=== PATIENT | female | born 1950 | race Caucasian/White ===

== ENCOUNTER 2018-04-22 11:57 | Outpatient (CLI) | payer OTHER, SELFPAY ==
--- NOTE | 2018-04-22 09:39 | DI.RAD_ITS ---
SYMPTOM/DIAGNOSIS: LT KNEE PAIN, M25.562 LEFT KNEE: Three views. No priors. The joint spaces are well maintained. The bones are intact and normally mineralized. The soft tissues are unremarkable. IMPRESSION: Negative left knee.
== END 2018-04-22 12:17 ==
PROVIDERS: PCP Family Medicine; Visit Provider Family Medicine
DX: M25.562 Pain in left knee (principal)
CPT/HCPCS: 73562

== ENCOUNTER 2018-04-28 01:04 | Outpatient (CLI) | payer OTHER, SELFPAY ==
--- NOTE | 2018-04-28 14:40 | DI.MRI_ITS ---
SYMPTOMS/DIAGNOSIS: ACUTE LEFT KNEE PAIN, ? MENISCUS TEAR MRI OF THE LEFT KNEE: Routine noncontrast examination was performed. There is increased complex signal in the posterior horn of the medial meniscus, suspicious for a tear. The lateral meniscus is intact. The anterior cruciate and posterior cruciate ligaments are intact, as are the medial and lateral collateral ligaments, extensor mechanism and medial and lateral retinacula. The popliteus tendon is intact. The articular cartilage is unremarkable. No findings to suggest an occult fracture or avascular necrosis are present. There is a small joint effusion. There is a 6.7 cm popliteal cyst present. No soft tissues masses appreciated. The muscles show normal signal and size. IMPRESSION: 1. Findings suspicious for a tear of the posterior horn of the medial meniscus. 2. A 6.7 cm popliteal cyst.
== END 2018-04-28 01:24 ==
PROVIDERS: PCP Family Medicine; Visit Provider Orthopaedic Surgery
DX: M25.562 Pain in left knee (principal); M71.22 Synovial cyst of popliteal space [Baker], left knee; M25.462 Effusion, left knee
CPT/HCPCS: 73721

== ENCOUNTER 2018-05-20 06:19 | Day surgery (SDC) | payer OTHER, SELFPAY ==
[2018-05-20] VITALS (7 sets, daily range): BP systolic 77–168; BP diastolic 42–89; PULSE 61–72; RESP 15–18; TEMP 35.8–36.4; O2SAT 63–98
[2018-05-20] MEDS: Lactated Ringers 1,000 ML 80 ML IV (07:02)
[2018-05-20] MEDS: Bupivacaine 0.25% Pres-Free 30 ML VIAL (08:10)
--- NOTE | 2018-05-20 08:50 | W.PM.DSUDISC ---
Discharge Plan Disposition Patient Disposition: HOME Condition: Improving Discharge Details Attending Provider: Simon Perdomo Primary Care Provider: Domenica Souza Home Meds and New Rx's Prescriptions: No Action nabumetone 750 mg tablet 750 mg PO BID Qty: 60 RF: 2 lisinopril 10 MG tablet 5 mg PO DAILY Qty: 90 RF: 3 clobetasol [Temovate] 0.05 % cream 1 applic Topical BID PRNRF: 0 Discharge Instructions Stand Alone Forms: Anes.Nerve Block Instructions, DSU Post op Instructions, Cody Rosa (DSU) Discharge Orders Discharge Orders: Discharge Order (Routine); Ordered 05/20/18 Ordered By: Simon Perdomo DS: Diagnosis Discharge Diagnosis (1) Tear of medial meniscus of right knee: Status: Acute
--- NOTE | 2018-05-20 08:51 | W.PM.DSUDISC ---
Discharge Plan Disposition Patient Disposition: HOME Condition: Improving Discharge Details Attending Provider: Simon Reed Primary Care Provider: Domenica Souza Home Meds and New Rx's Prescriptions: No Action nabumetone 750 mg tablet 750 mg PO BID Qty: 60 RF: 2 lisinopril 10 MG tablet 5 mg PO DAILY Qty: 90 RF: 3 clobetasol [Temovate] 0.05 % cream 1 applic Topical BID PRNRF: 0 Discharge Instructions Additional Instructions: KEEP YOUR LEFT LEG ELEVATED ABOVE HEART LEVEL MUCH POSSIBLE FOR THE NEXT 48 HOURS. YOU MAY WALK ON YOUR LEFT LEG AND PLACE YOUR FULL WEIGHT UPON IT COMFORT ALLOWS. FOR THE NEXT 48 HOURS YOU SHOULD ONLY BE UP ON IT TO EAT OR TO GO TO THE BATHROOM. YOU ONLY NEED TO USE YOUR CRUTCHES AND THE KNEE IMMOBILIZER FOR DISCOMFORT. USE THE CRYO CUFF TO HELP PREVENT PAIN AND SWELLING. YOU MAY LOOSEN YOUR KNEE SPLINT (AND REMOVE IT WHEN COMFORTABLE). YOU MAY LOOSEN THE UNDERLYING COLLINS BANDAGES IF THEY FEEL TOO TIGHT AND RE-WRAPTHEM. ON Friday05/22/18, YOU MAY REMOVE ALL OF YOUR BANDAGES AND GET YOUR WOUNDS WET IN THE SHOWER WITH SOAP AND WATER. GENTLY PAT THE STITCHES DRY AND COVER THEM WITH BANDAIDS. APPLY A SINGLE 6 INCH COLLINS BANDAGE FOR SUPPORT AND GRADUALLY RESUME ACTIVITY TOLERATED. MAKE SURE YOU REMOVE THE 6 INCH COLLINS BANDAGE EACH NIGHT FOR SLEEPING SO THAT IT DOESN'T CAUSE SWELLING IN THE LOWER LEG. CONTINUE TO USE THE CRYOCUFF FOR PAIN AND SWELLING. TAKE YOUR USUAL MEDICATIONS BEFORE. TAKE TYLENOL FOR MILDER PAIN. IT CAN BE SAFELY USED AT THE SAME TIME NABUMETONE THEY ARE METABOLIZED DIFFERENTLY AND ARE NOT CROSS TOXIC. TAKE NORCO(HYDROCODONE 5/325MG) 1-2 EVERY 4 HOURS FOR MORE SERIOUS PAIN. [facility] [place] REGULATIONS LIMIT THE AMOUNT OF NORCO TO [address]TS[address] FOLLOW-UP WITH DR. REED IN 10-12 DAYS FOR REVIEW OF ARTHROSCOPIC FINDINGS AND STITCH REMOVAL Stand Alone Forms: Anes.Nerve Block Instructions, DSU Post op Instructions, Cody Rosa (DSU) Discharge Orders Discharge Orders: Discharge Order (Routine); Ordered 05/20/18 Ordered By: Simon Reed DS: Diagnosis Discharge Diagnosis (1) Tear of medial meniscus of left knee, current: Status: Acute
--- NOTE | 2018-05-20 09:04 | PDOC.DSDIS_ITS ---
Discharge Plan Disposition Patient Disposition: HOME Condition: Improving Discharge Details Attending Provider: Simon Reed Primary Care Provider: Domenica Souza Home Meds and New Rx's Prescriptions: No Action nabumetone 750 mg tablet 750 mg PO BID Qty: 60 RF: 2 lisinopril 10 MG tablet 5 mg PO DAILY Qty: 90 RF: 3 clobetasol [Temovate] 0.05 % cream 1 applic Topical BID PRNRF: 0 Discharge Instructions Additional Instructions: KEEP YOUR LEFT LEG ELEVATED ABOVE HEART LEVEL MUCH POSSIBLE FOR THE NEXT 48 HOURS. YOU MAY WALK ON YOUR LEFT LEG AND PLACE YOUR FULL WEIGHT UPON IT COMFORT ALLOWS. FOR THE NEXT 48 HOURS YOU SHOULD ONLY BE UP ON IT TO EAT OR TO GO TO THE BATHROOM. YOU ONLY NEED TO USE YOUR CRUTCHES AND THE KNEE IMMOBILIZER FOR DISCOMFORT. USE THE CRYO CUFF TO HELP PREVENT PAIN AND SWELLING. YOU MAY LOOSEN YOUR KNEE SPLINT (AND REMOVE IT WHEN COMFORTABLE). YOU MAY LOOSEN THE UNDERLYING COLLINS BANDAGES IF THEY FEEL TOO TIGHT AND RE- WRAPTHEM. ON Friday05/22/18, YOU MAY REMOVE ALL OF YOUR BANDAGES AND GET YOUR WOUNDS WET IN THE SHOWER WITH SOAP AND WATER. GENTLY PAT THE STITCHES DRY AND COVER THEM WITH BANDAIDS. APPLY A SINGLE 6 INCH COLLINS BANDAGE FOR SUPPORT AND GRADUALLY RESUME ACTIVITY TOLERATED. MAKE SURE YOU REMOVE THE 6 INCH COLLINS BANDAGE EACH NIGHT FOR SLEEPING SO THAT IT DOESN'T CAUSE SWELLING IN THE LOWER LEG. CONTINUE TO USE THE CRYOCUFF FOR PAIN AND SWELLING. TAKE YOUR USUAL MEDICATIONS BEFORE. TAKE TYLENOL FOR MILDER PAIN. IT CAN BE SAFELY USED AT THE SAME TIME NABUMETONE THEY ARE METABOLIZED DIFFERENTLY AND ARE NOT CROSS TOXIC. TAKE NORCO(HYDROCODONE 5/325MG) 1-2 EVERY 4 HOURS FOR MORE SERIOUS PAIN. [facility] [place] AMOUNT OF NORCO TO [address]TS[address] FOLLOW-UP WITH DR. REED IN 10-12 DAYS FOR REVIEW OF ARTHROSCOPIC FINDINGS AND STITCH REMOVAL Stand Alone Forms: Anes.Nerve Block Instructions, DSU Post op Instructions, Cody Rosa (DSU) Discharge Orders Discharge Orders: Discharge Order (Routine); Ordered 05/20/18 Ordered By: Simon Reed DS: Diagnosis Discharge Diagnosis (1) Tear of medial meniscus of left knee, current: Status: Acute
--- NOTE | 2018-05-20 12:08 | ROE_ITS ---
REPORT OF OPERATIVE PROCEDURE DATE OF PROCEDURE May 20, 2018 PREOPERATIVE DIAGNOSES Left knee pain with large calle cyst, question medial meniscus tear. POSTOPERATIVE DIAGNOSES Left posteromedial meniscus tear with damage articular cartilage medial femoral condyle. PROCEDURES Left knee arthroscopy with partial medial meniscectomy and limited chondroplasty medial femoral condy le. SURGEON Simon Perdomo M.D. [employer] Tech. ANESTHETIC LMA by Harpreet Schwab CRNA PREP ChloraPrep INDICATIONS This patient is a 67-year-old female who felt a sharp pain and pop in her left knee when stepping susan n on it. She had radiographs done, which were unremarkable. She had an MRI done, which showed a large popliteal cyst, and in addition some abnormal signal coming from the posterior medial aspect of her medial meniscus. The lateral meniscus, the ACL and the articular cartilage appeared to be intact on t he MRI images. Because of persistent pain and a prominent popliteal cyst, I felt that there was some form of internal derangement causing the production of extra joint fluid. I recommended arthroscopy t o try to sort these issues out. I discussed the planned procedure with the patient in detail. DESCRIPTION OF PROCEDURE I met her in the Day Surgery holding area and appropriately signed her left leg. The patient was brou ght to the Operating Suite, where she underwent successful induction of General anesthesia via LMA. P rophylactic intravenous antibiotics were not utilized. The patient has multiple allergies to antibiot ics and I felt the risk of infection was minimal. Time-out was instituted confirming the planned proc edure. The entire left lower extremity was prepped with ChloraPrep. Sterile drapes were applied. The arthroscopy was inserted through an anterolateral portal. Inflow was provided through the scope. Egre ss and pressure-monitoring portals were placed superolaterally. Instrumentation was accomplished ante romedially. Inspection of the medial compartment showed articular cartilage damage to the mesial asp ect of the medial femoral condyle. There was loose fibrillated articular cartilage over a fairly wide area of the medial femoral condyle. It did not go down to the subchondral bone. Associated with this was a posteromedial meniscus tear. The majority of this tear was a horizontal cleavage tear, but the re was a large posterior mesial fragment noted. The ACL was intact. The lateral compartment had a no rmal appearance and the lateral meniscus was carefully probed and found to be intact. The patella jenny eared normal. Using basket instruments, I first removed the degenerative portion of the posteromedial meniscus tear. I then smoothed the articular cartilage surface with the ArthroCare wand using a 90-d egree head. I switched to a 50-degree head and then completed the sculpturing of the remnant in the m edial meniscus. There was a small area of articular cartilage loss on the medial tibial plateau about the size of a dime. I documented the articular cartilage damage and the partial meniscectomy. I felt that approximately 5 to 7% of the medial meniscus had to be resected. The knee was then irrigated wi th several thousand cc of saline. The arthroscope was removed. Portals were closed with sutures of #4 -0 Ethilon in a horizontal mattress fashion. The knee was infiltrated with 20 cc of 0.5% Marcaine wit hout epinephrine. The wounds were dressed with Xeroform gauze, 4 x 4s, an ABD pad and a 4-inch confir dewayne gauze bandage, followed by two 6-inch Bakari wraps, a Cryo/cuff and a commercial knee immobilizer. The patient is taken to the outpatient Recovery Room in satisfactory condition, tolerating the proc edure well.
== END 2018-05-20 10:24 | disposition home or self-care (01) ==
PROVIDERS: PCP Family Medicine; Visit Provider Orthopaedic Surgery
PROC: (CPT 29870; principal; 2018-05-20 07:30)
DX: S83.242A Other tear of medial meniscus, current injury, left knee, initial encounter (principal); X58.XXXA Exposure to other specified factors, initial encounter; M24.10 Other articular cartilage disorders, unspecified site
CPT/HCPCS: 29881; J0131; J1100; J1885; J2405; L1830

== ENCOUNTER 2018-12-02 00:34 | Outpatient (CLI) | payer OTHER, SELFPAY ==
--- NOTE | 2018-12-02 12:00 | DI.MAMMO_ITS ---
SYMPTOM/DIAGNOSIS: SCREENING MAMMOGRAMS: Mammograms were interpreted according to the usual protocol including computer analysis with CAD system, tomosynthesis and C view imaging. The breasts are of moderate density with fairly symmetrical distribution of fibroglandular tissue. No dominant mass or clumped microcalcification is identified in either breast. The current examination is compared with previous examinations including 06/2017 and there has been no gross interval change in appearance in comparison with the previous studies. CONCLUSION: No specific evidence of malignancy at this time. Routine screening examinations are suggested at yearly intervals due to the family history of breast carcinoma. Category 1. Breast density, Category B. MQSA ASSESSMENT OF FINDINGS: Negative. Category 1. Patient will receive a letter notifying them of these results. BI-RADS category B. There are scattered areas of fibroglandular density.
== END 2018-12-02 00:54 ==
PROVIDERS: PCP Family Medicine; Visit Provider Family Medicine
DX: Z12.31 Encounter for screening mammogram for malignant neoplasm of breast (principal); Z80.3 Family history of malignant neoplasm of breast
CPT/HCPCS: 77063; 77067

== ENCOUNTER 2019-01-23 14:44 | Emergency (ER) | payer OTHER, SELFPAY ==
[2019-01-23 14:50] VITALS: BP 133/81; PULSE 69; RESP 14; TEMP 36.2; O2SAT 94
--- NOTE | 2019-01-23 15:10 | W.ED.GENAD ---
Discharge Plan Disposition Patient Disposition: HOME Condition: Stable Discharge Details Chief Complaint: RashLesion Clinical Impression: Foot erythema Primary Care Provider: Domenica Souza ED Provider: Shanna Jha Home Meds and New Rx's Prescriptions: Continued lisinopril 10 mg tablet 5 mg PO DAILY RF: 0 meloxicam 15 mg tablet 15 mg PO DAILY Qty: 30 RF: 2 sertraline 100 mg tablet 200 mg PO DAILY Qty: 60 RF: 0 clobetasol [Temovate] 0.05 % cream 1 applic Topical BID PRNRF: 0 Discharge Instructions Instructions: Insect Bite or Sting (ED), General Allergic Reaction (ED) Additional Instructions: Take Benadryl as needed and directed for any further itching. Apply ice to the affected area several times daily for 20 minutes at a time. Apply topical antibiotic to the area if you develop any worsening pain, redness or swelling. Follow-up with your primary care doctor in 2 days for reevaluation. Return immediately to the emergency department if you develop any worsening or concerning symptoms of fever, worsening pain, redness or swelling. Discharge Data Discharge Date/Time-TO BE ENTERED AT DEPARTURE: 01/23/19 15:45 Discharge Physician: Shanna Jha Medical Decision Making 68-year-old female who presents for evaluation of left foot itching and redness that started 1 hour prior to arrival. States she thinks that the bug bite. She states the redness has since improved. She states she has a history of multiple antibiotic allergies and became nervous and came to the ER for evaluation. She states she feels like she does not need to be here and would like to go home at this time. She made a line around the area of redness which seems to be resolving. There are no open wounds, abscesses, induration. Neurovascularly intact. No obvious bites noted. Do not see an indication for labs or imaging. Differential diagnosis includes a local inflammation due to bug bite, allergic reaction. Do not suspect cellulitis at this time, but patient was offered a prescription for antibiotics in case this worsens but she declines at this time. She is instructed to take Benadryl as needed and directed, apply ice, and elevate her left foot. She is instructed to follow-up with her primary care doctor next week for reevaluation and to return here if worse. HPI General Mode of arrival: ambulatory. Date/Time Provider Initiated Documentation: 01/23/19 14:53. Limitations to Documentation: no limitations. Information obtained by: patient. HPI Narrative: Patient is a 68-year-old female presents for evaluation of left foot redness, itching and pain. Patient states she is currently staying at [facility] and she thinks she may have sustained a bug bite to her left foot. She states that she noticed left fifth toe redness and pain and then noticed redness spreading up her foot. She states she then developed itching. She was going to take Benadryl but then got nervous and decided to come to the ER. She states the pain and redness is mainly resolving and now she has some itching. She states she feels like she did not need to be here and would like to go home at this time. She denies any fever or other known injury. Related Data Home Medications Medication Instructions Recorded Confirmed clobetasol [Temovate] 1 applic TOPICAL BID PRN 05/18/18 01/23/19 lisinopril 10 mg tablet 5 mg PO DAILY tab-cap 09/30/18 01/23/19 meloxicam 15 mg tablet 15 mg PO DAILY #30 tab 12/02/18 01/23/19 sertraline 100 mg tablet 200 mg PO DAILY #60 tab 12/02/18 01/23/19 Previous Rx's Medication Instructions Recorded meloxicam 15 mg tablet 15 mg PO DAILY #30 tab 12/02/18 sertraline 100 mg tablet 200 mg PO DAILY #60 tab 12/02/18 Allergies Allergy/AdvReac Type Severity Reaction Status Date / Time ciprofloxacin Allergy Unknown RASH Verified 01/23/19 14:53 clindamycin Allergy Unknown RASH Verified 01/23/19 14:53 Iodinated Contrast- Oral and Allergy Unknown Urticaria Verified 01/23/19 14:53 IV Dye sulfamethoxazole Allergy Unknown Verified 01/23/19 14:53 Tetracyclines Allergy Unknown Swelling Verified 01/23/19 14:53 trimethoprim Allergy Unknown Verified 01/23/19 14:53 Penicillins Allergy Verified 01/23/19 14:53 General Stated Complaint: RashLesion LUIS ALBERTO: 4 Review of Systems Review of Systems All systems reviewed & are unremarkable except as noted in HPI and below Constitutional Reports as per HPI, Denies chills and Denies fever(s) Eyes Denies blurry vision ENT Denies dizziness, Denies sore throat and Denies throat swelling Cardiovascular Denies chest pain and Denies dyspnea Respiratory Denies cough and Denies dyspnea Gastrointestinal Denies abdominal pain, Denies diarrhea and Denies vomiting Genitourinary Denies hematuria and Denies dysuria Musculoskeletal Denies back pain and Denies numbness Integumentary/Breasts Denies lesions and Reports rash Neurologic Denies dizziness, Denies focal weakness and Denies numbness Allergic/Immunologic Denies throat swelling [facility] Medical History Depression HTN (hypertension) Surgical History Biopsy, Soft Tissue (06/04/17) Cholecystectomy Colonoscopy - IV Sedation (04/30/16) Ligation of fallopian tube SHOULDER SURGERY SKIN BX Tooth extraction Family History Sister Dementia Mother Heart disease Myocardial infarction Father Gout Alcohol abuse Essential hypertension Heart disease Hyperlipidemia Sister No problems noted. Brother Essential hypertension Grandfather Myocardial infarction Grandfather Electrocution Grandmother No problems noted. Grandmother No problems noted. Social History Smoking/Tobacco Use Status: Never Alcohol Intake: current Alcohol Intake frequency: a few times a month Drug use: Never Substance use type: does not use Pets and animals: No Duration: < 15 minutes/day Frequency: 3-4 times per week Yvonne/Sabianism: Jehovah'S Witness Special yvonne needs: Yes Seatbelt use: always Do you feel safe at home: Yes Do you feel safe in your relationship?: Yes Exam Const General: cooperative, healthy appearing and no acute distress HENMT Head: normal to inspection Mouth: oral mucosae normal Eyes General: appearance normal, both eyes and all related structures Neck Neck: normal visual inspection Resp Effort & Inspection: normal respiratory effort and able to speak in complete sentences Cardio Rate: regular rate Skin General skin exam: no rashes or lesions noted Neuro General: alert, awake and oriented x3 Motor: muscle tone normal throughout Extrem Ankle/foot/toe images: 1. Very minimal faint patchy erythema. No induration, fluctuance, abrasion, laceration, vesicles or papules. Other: Left DP/PT pulses intact. No ecchymosis, deformity, or obvious foreign body. Psych Appearance: grossly normal Affect: normal affect Course Vital Signs Temperature 97.2 F L 01/23/19 14:50 Pulse 69 01/23/19 14:50 Respiratory Rate 14 01/23/19 14:50 Blood Pressure 133/81 01/23/19 14:50 Pulse Oximetry 94 L 01/23/19 14:50 Temperature 97.2 F L 01/23/19 14:50 Pulse 69 01/23/19 14:50 Respiratory Rate 14 01/23/19 14:50 Respiratory Effort Non-Labored 01/23/19 14:52 Blood Pressure 133/81 01/23/19 14:50 Blood Pressure Position Sitting 01/23/19 14:50 Pulse Oximetry 94 L 01/23/19 14:50 Oxygen Delivery Method Room Air 01/23/19 14:50 Oxygen Flow Rate 0 01/23/19 14:50 Pain Level 0 01/23/19 14:50
== END 2019-01-23 15:45 | disposition home or self-care (01) ==
PROVIDERS: Emergency Provider Physician Assistant; PCP Family Medicine
DX: L53.9 Erythematous condition, unspecified (principal); I10 Essential (primary) hypertension
CPT/HCPCS: 99282

== ENCOUNTER 2019-07-27 01:22 | Outpatient (CLI) | payer OTHER, SELFPAY ==
--- NOTE | 2019-07-27 10:06 | DI.MRI_ITS ---
EXAM: MR LOWER JOINT LT WO CLINICAL HISTORY: PAIN, INTERNAL DERANGEMENT LT KNEE. TECHNIQUE: Multiplanar multisequence MRI was performed. COMPARISON: MR LOWER JOINT LT WO FROM 04/28/2018 THERE ARE NO RECENT PLAIN FILMS FOR COMPARISON. FINDINGS: There is a moderate size joint effusion. There is a small Burkett's cyst. The Burkett's cyst appears sm aller when compared with the previous exam. The anterior cruciate ligament appears somewhat diminuti ve. There is no evidence of a full-thickness tear. Posterior cruciate ligament, medial and lateral collateral ligaments appear intact. The medial meniscus is peripherally displaced. There is cartila ge thinning over the medial femoral condyle and medial tibial plateau extending down to bone. There is high signal in the underlying bone. There is spurring from the femoral condyles and tibial platea us. There is deformity of the posterior horn of the medial meniscus posteriorly, which is likely pos tsurgical. There is a tiny declivity, which could represent a small superimposed tear of the undersu rface. Cartilage thinning is also seen over the lateral femoral condyle and lateral tibial plateau. No lateral meniscal tear is seen. There is mild thinning of the patellar cartilage but no focal def ect. IMPRESSION: 1. Degenerative and postsurgical changes of the body and posterior horn of the medial meniscus. Ther e is a question of a tiny superimposed flap tear in the posterior horn. 2. 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 Moderate chondromalacia of the lateral f emorotibial joint.
== END 2019-07-27 01:42 ==
PROVIDERS: PCP Family Medicine; Visit Provider Student in an Organized Health Care Education/Training Program
DX: M25.562 Pain in left knee (principal); M23.92 Unspecified internal derangement of left knee; M17.12 Unilateral primary osteoarthritis, left knee; M94.262 Chondromalacia, left knee
CPT/HCPCS: 73721

== ENCOUNTER 2020-03-07 11:55 | Outpatient (CLI) | payer OTHER, SELFPAY ==
--- NOTE | 2020-03-07 13:30 | DI.RAD_ITS ---
EXAM: XR HIP RT COMPLETE AP PELVIS INDICATION: groin pain, M25.551 PAIN RT HIP. COMPARISON: CR RIGHT HIP COMPLETE from 12/19/2008 TECHNIQUE: 2D digital imaging was performed. FINDINGS: The hip joint spaces are well maintained. There is bilateral acetabular spurring, greater superiorly on the right. There is spurring versus small calcification at the right greater trochanter. SI juan nts show minimal degenerative changes. Mild enthesophytes are seen at the iliac wings. IMPRESSION: Mild degenerative changes of both hips. DATA REPOSITORY: RADIATION DOSE DELIVERED:
== END 2020-03-07 12:15 ==
PROVIDERS: PCP Family Medicine; Visit Provider Family Medicine
DX: M16.0 Bilateral primary osteoarthritis of hip (principal)
CPT/HCPCS: 73502

== ENCOUNTER 2020-03-10 14:08 | Outpatient (CLI) | payer OTHER, SELFPAY ==
--- NOTE | 2020-03-10 14:40 | DI.MRI_ITS ---
EXAM: MR LUMBAR SPINE WO CLINICAL HISTORY: Pain left buttock radiating into leg, radiculopathy lumbar, M54.16. TECHNIQUE: Multiplanar multisequence MRI was performed. COMPARISON: CR XR HIP LT COMPLETE AP PELVIS from 03/07/2020 FINDINGS: T12-L1 and L2 discs have a normal appearance. There is mild concentric disc bulging at L2-3. There are mild facet degenerative changes. Findings combine to produce mild degree of central canal steno sis but no significant neural foraminal narrowing. Similar findings are seen at L3-4. At L4-5, ther e is broad-based disc bulging. There are prominent facet degenerative changes as well as ligamentous hypertrophy which combine to produce severe central canal stenosis. There is mild neural foraminal encroachment bilaterally. The L5-S1 disc shows minimal bulging. There are mild facet degenerative c hanges. There is no significant central canal stenosis or neural foraminal narrowing. The marrow si gnal appears normal. The conus medullaris is intact. The paraspinal soft tissues are unremarkable. IMPRESSION: Severe central canal stenosis at L4-5 secondary to a combination of degenerative disc changes and fac et degenerative changes. No evidence of a focal disc herniation at any level. DATA REPOSITORY:
== END 2020-03-10 14:28 ==
PROVIDERS: PCP Family Medicine; Visit Provider Family Medicine
DX: M48.061 Spinal stenosis, lumbar region without neurogenic claudication (principal); M51.16 Intervertebral disc disorders with radiculopathy, lumbar region
CPT/HCPCS: 72148

== ENCOUNTER 2020-04-14 18:54 | Outpatient (REF) | payer OTHER, SELFPAY ==
[2020-04-14 20:04] LABS: HCT 38.5 % (36.0-46.0); HGB 12.7 g/dL (11.2-15.7); MCH 30.4 pg (27.0-33.0); MCV 92.1 fL (80-95); MPV 12.3 fL (8.0-11.0); Platelet Count 234 10^3/uL (130-400); RBC 4.18 10^6/uL (3.93-5.22); RDW-SD 43.9 fL; WBC 7.26 10^3/uL (4.4-10.8)
[2020-04-14 20:13] LABS: ALT 23 U/L (14-59); AST 17 U/L (15-37); Albumin 3.9 g/dL (3.4-5.0); Alkaline Phosphatase 62 U/L (46-116); Anion Gap 8.3 mmol/L (3-11); BUN 21 mg/dL (7-18); Bilirubin, Total 0.5 mg/dL (0.2-1.0); CO2 27.7 mmol/L (21.0-32.0); CREATININE 0.88 mg/dL (0.55-1.02); Calcium 9.1 mg/dL (8.5-10.1); Chloride 105 mmol/L (98-107); Glucose 108 mg/dL (74-106); Potassium 4.3 mmol/L (3.5-5.1); Sodium 141 mmol/L (136-145); Total Protein 6.8 g/dL (6.4-8.2)
== END 2020-04-14 19:14 ==
LOC: LBN 18:54
PROVIDERS: PCP Family Medicine; Visit Provider Nurse Practitioner Family
DX: Z01.818 Encounter for other preprocedural examination (principal)
CPT/HCPCS: 80053; 85027

== ENCOUNTER 2020-11-06 03:25 | Outpatient (CLI) | payer OTHER, SELFPAY ==
[2020-11-06 08:37] LABS: ALT 22 U/L (14-59); AST 16 U/L (15-37); Albumin 3.7 g/dL (3.4-5.0); Alkaline Phosphatase 75 U/L (46-116); Anion Gap 6.2 mmol/L (3-11); BUN 19 mg/dL (7-18); Bilirubin, Total 0.5 mg/dL (0.2-1.0); CO2 27.8 mmol/L (21.0-32.0); CREATININE 0.8 mg/dL (0.55-1.02); Calcium 8.6 mg/dL (8.5-10.1); Calculated LDL 115 mg/dL (<100); Chloride 110 mmol/L (98-107); Cholesterol 179 mg/dL (<200); Glucose 87 mg/dL (74-106); HDL Cholesterol 53 mg/dL (40-60); Potassium 4.1 mmol/L (3.5-5.1); Sodium 144 mmol/L (136-145); Total Protein 6.6 g/dL (6.4-8.2); Triglyceride 57 mg/dL (<150)
== END 2020-11-06 03:26 | disposition home or self-care (01) ==
LOC: LBO 03:25
PROVIDERS: PCP Family Medicine; Visit Provider Family Medicine
DX: I10 Essential (primary) hypertension (principal)
CPT/HCPCS: 36415; 80053; 80061

== ENCOUNTER 2020-11-14 01:26 | Outpatient (CLI) | payer OTHER, SELFPAY ==
--- NOTE | 2020-11-14 11:20 | DI.MAMMO_ITS ---
EXAM: MG MAMMO SCREENING CLINICAL HISTORY: screening,Z12.39 TECHNIQUE: Bilateral full field digital CC and MLO mammographic images were obtained with 3D tomosyn thesis and utilizing computer aided detection (CAD). COMPARISON: Available for comparison. FINDINGS: Masses/Architectural Distortion: None seen. Microcalcifications: No suspicious pleomorphic-type are seen. Skin Thickening/Nipple Retraction: None. IMPRESSION: 1. No significant interval change with no specific features of malignancy noted. 2. Unless there is more urgent need, screening mammography is recommended, as per [employer] guidelines. BI-RADS Category 1 - Negative Breast Density - Category B - Scattered areas of fibroglandular density Breast density category C or D implies that the patient has dense breast tissue. Dense breast tissue is very common and is not abnormal but dense breast tissue can make it harder to find cancer on a ma mmogram. Also, dense breast tissue may increase their breast cancer risk. This information about the result of the mammogram report was provided to the patient to raise their awareness. Use this report when you speak with the patient about their risks for breast cancer, which includes their family hist ory. At that time, you may recommend for more screening tests (Ultrasound or MRI) as they might be us eful based on their risk. A negative radiographic report should not delay biopsy if a dominant or clinically suspicious mass is present. Up to ten percent of cancers are not identified on mammography. A negative report may reinforce clinical impression. Adenosis and dense breasts may obscure an underlying neoplasm. False positive reports average 6 to 10%. Patient will receive a letter notifying them of these results.
== END 2020-11-14 01:46 ==
PROVIDERS: PCP Family Medicine; Visit Provider Family Medicine
DX: Z12.31 Encounter for screening mammogram for malignant neoplasm of breast (principal)
CPT/HCPCS: 77063; 77067

== ENCOUNTER 2021-05-15 10:25 | Outpatient (CLI) | payer OTHER, SELFPAY ==
--- NOTE | 2021-05-15 10:00 | DI.RAD_ITS ---
Exam(s) XR KNEE RT 3V AP,LAT,AUDREY EXAM: XR KNEE RT 3V AP,LAT,AUDREY CLINICAL HISTORY: right knee pain. TECHNIQUE: 2D digital imaging was performed. COMPARISON: No exams were available for comparison FINDINGS: BONES: No acute fracture is present. No bony destructive lesion is seen. Small enthesophytes patella. At these a fight tibial tubercle. JOINTS: The knee is normally aligned. A small joint effusion is seen. Mild narrowing medial femoral t ibial joint space. Mild periarticular spurring. SOFT TISSUE: Normal. IMPRESSION: Mild degenerative changes, greatest of the medial femoral tibial joint. DATA REPOSITORY: RADIATION DOSE DELIVERED:
== END 2021-05-15 10:26 | disposition home or self-care (01) ==
LOC: DIORS 10:26
PROVIDERS: PCP Family Medicine; Visit Provider Student in an Organized Health Care Education/Training Program
DX: M25.561 Pain in right knee (principal); M25.461 Effusion, right knee; M17.11 Unilateral primary osteoarthritis, right knee
CPT/HCPCS: 73562

== ENCOUNTER 2021-11-29 00:16 | Outpatient (CLI) | payer OTHER, SELFPAY ==
--- NOTE | 2021-11-29 07:45 | DI.MAMMO_ITS ---
Exam(s) MAMMO SCREENING EXAM: MAMMO SCREENING CLINICAL HISTORY: screening,z12.39 TECHNIQUE: Mammograms were interpreted according to the usual protocol including computer analysis w [employer] CAD system, tomosynthesis and C-view imaging. COMPARISON: FINDINGS: The breasts are of moderate density with fairly symmetrical distribution of fibroglandular tissue. N o dominant mass or clumped microcalcification is identified in either breast. The current examinatio n is compared with previous examinations including October 2020 and there has been no gross interval ch ameena in appearance in comparison with the prior studies. IMPRESSION: No specific evidence of malignancy at this time. Routine screening examinations are suggested at yea rly intervals in this age group according to the ACS ACR guidelines. BI-RADS Category 1 - Negative Breast Density - Category B - Scattered areas of fibroglandular density
== END 2021-11-29 00:36 ==
PROVIDERS: PCP Family Medicine; Visit Provider Family Medicine
DX: Z12.31 Encounter for screening mammogram for malignant neoplasm of breast (principal)
CPT/HCPCS: 77063; 77067

== ENCOUNTER 2022-01-14 03:29 | Outpatient (CLI) | payer OTHER, SELFPAY ==
[2022-01-14 07:16] LABS: HCT 38.8 % (36.0-46.0); HGB 12.9 g/dL (11.2-15.7); MCHC 33.2 % (32.0-36.0); MCV 90 fL (80-95); MPV 10.5 fL (8.0-11.0); Platelet Count 207 10^3/uL (130-400); RDW 12.9 % (11.7-14.6); RDW-SD 42.6 fL; WBC 6.99 10^3/uL (4.4-10.8)
[2022-01-14 08:56] LABS: ALT 18 U/L (14-59); AST 17 U/L (15-37); Albumin 3.5 g/dL (3.4-5.0); Alkaline Phosphatase 65 U/L (46-116); Anion Gap 6.1 mmol/L (3-11); BUN 22 mg/dL (7-18); Bilirubin, Total 0.5 mg/dL (0.2-1.0); CO2 29.9 mmol/L (21.0-32.0); CREATININE 0.7 mg/dL (0.55-1.02); Calcium 8.5 mg/dL (8.5-10.1); Chloride 103 mmol/L (98-107); Glucose 89 mg/dL (74-106); Potassium 3.7 mmol/L (3.5-5.1); Sodium 139 mmol/L (136-145); TSH 3.91 uIU/mL (0.36-3.74); Total Protein 6.8 g/dL (6.4-8.2); Vitamin B12 427 pg/mL (193-986)
[2022-01-15 08:55] LABS: FREE T4 0.79 ng/dL (0.76-1.46)
== END 2022-01-14 03:30 | disposition home or self-care (01) ==
LOC: LBO 03:29
PROVIDERS: PCP Family Medicine; Visit Provider Family Medicine
DX: I10 Essential (primary) hypertension (principal); R53.1 Weakness; R79.89 Other specified abnormal findings of blood chemistry; M79.604 Pain in right leg; M79.605 Pain in left leg; R26.89 Other abnormalities of gait and mobility; M48.061 Spinal stenosis, lumbar region without neurogenic claudication
CPT/HCPCS: 36415; 80053; 85027; 82607; 84439; 84443

== ENCOUNTER → 2022-01-25 00:50 | Outpatient (CLI) | payer OTHER, SELFPAY ==
--- NOTE | 2022-01-25 13:15 | DI.MRI_ITS ---
Exam(s) MR LUMBAR SPINE WO EXAM: MR LUMBAR SPINE WO CLINICAL HISTORY: recurrent bilateral leg pain/weakness,spinal stenosis,m48.061,m79.604,m79.6 TECHNIQUE: Multiplanar multisequence MRI of the Lumbar Spine was performed. CONTRAST MATERIAL: IV Contrast: mL of Dotarem contrast administered. COMPARISON: MR MR LUMBAR SPINE WO from 03/10/2020 CR XR KNEE RT 3V AP,LAT,AUDREY from 05/15/2021 FINDINGS: Bones: The last intervertebral disc space is designated the L5/S1 level for the numbering purpose of this examination. The vertebral body heights are well maintained. Alignment is satisfactory. The sig nal characteristics are unremarkable. Cord: The conus tip ends at the T12 level. It is of normal size and signal intensity. T12-L1: No disc herniations or bulges are present. L1-2: Minimal disc bulging. No disc herniations are present. L2-3: Mild loss of disc height and mild concentric disc bulging. Mild facet degenerative changes. St able small mild central canal stenosis. No neural foraminal narrowing. L3-4: Mild disc bulging. No significant neural foraminal narrowing. Slight central canal stenosis. L4-5: Status post surgery. Canal is now widely patent. Facet degenerative changes cause mild right n eural foraminal encroachment and moderate left neural foraminal encroachment. L5-S1: Minimal disc bulging. Facet degenerative changes causing mild neural foraminal encroachment. Soft tissues: The visualized SI joints and sacrum are well maintained. The paraspinal soft tissues ar e unremarkable. There is no evidence of suspicious enhancement. IMPRESSION: Status post surgery at L4-5 central canal is now widely patent. There is bilateral neural foraminal n arrowing secondary to encroachment by facet joint degenerative changes. No evidence of disc herniatio n. DATA REPOSITORY:
== END ==
PROVIDERS: PCP Family Medicine; Visit Provider Family Medicine
DX: M48.061 Spinal stenosis, lumbar region without neurogenic claudication (principal); M79.604 Pain in right leg; M79.605 Pain in left leg; M47.816 Spondylosis without myelopathy or radiculopathy, lumbar region; Z98.890 Other specified postprocedural states
CPT/HCPCS: 72148

== ENCOUNTER 2022-04-30 02:58 | Outpatient (CLI) | payer OTHER, SELFPAY ==
[2022-04-30 13:57] LABS: TSH 3.01 uIU/mL (0.36-3.74)
== END 2022-04-30 02:59 | disposition home or self-care (01) ==
LOC: LBO 02:58
PROVIDERS: PCP Family Medicine; Visit Provider Family Medicine
DX: R79.89 Other specified abnormal findings of blood chemistry (principal); I10 Essential (primary) hypertension
CPT/HCPCS: 36415; 84439; 84443

== ENCOUNTER 2022-12-05 01:27 | Outpatient (CLI) | payer OTHER, SELFPAY ==
--- NOTE | 2022-12-05 08:30 | DI.MAMMO_ITS ---
Exam(s) MAMMO SCREENING EXAM: MAMMO SCREENING CLINICAL HISTORY: screening,z12.39 TECHNIQUE: Bilateral full field digital CC and MLO mammographic images were obtained with 3D tomosyn thesis and utilizing computer aided detection (CAD). COMPARISON: Available for comparison. FINDINGS: Masses/Architectural Distortion: None seen. Microcalcifications: No suspicious pleomorphic-type are seen. Skin Thickening/Nipple Retraction: None. IMPRESSION: 1. No significant interval change with no specific features of malignancy noted. 2. Unless there is more urgent need, screening mammography is recommended, as per [employer] guidelines. BI-RADS Category 1 - Negative Breast Density - Category B - Scattered areas of fibroglandular density Breast density category C or D implies that the patient has dense breast tissue. Dense breast tissue is very common and is not abnormal but dense breast tissue can make it harder to find cancer on a ma mmogram. Also, dense breast tissue may increase their breast cancer risk. This information about the result of the mammogram report was provided to the patient to raise their awareness. Use this report when you speak with the patient about their risks for breast cancer, which includes their family hist ory. At that time, you may recommend for more screening tests (Ultrasound or MRI) as they might be us eful based on their risk. A negative radiographic report should not delay biopsy if a dominant or clinically suspicious mass is present. Up to ten percent of cancers are not identified on mammography. A negative report may reinforce clinical impression. Adenosis and dense breasts may obscure an underlying neoplasm. False positive reports average 6 to 10%. Patient will receive a letter notifying them of these results.
== END 2022-12-05 01:47 ==
LOC: DI 01:27
PROVIDERS: PCP Family Medicine; Visit Provider Family Medicine
DX: Z12.31 Encounter for screening mammogram for malignant neoplasm of breast (principal)
CPT/HCPCS: 77063; 77067

== ENCOUNTER 2022-12-19 04:41 | Outpatient (CLI) | payer OTHER, SELFPAY ==
[2022-12-19 07:48] LABS: CREATININE 0.7 mg/dL (0.55-1.02); Estimated GFR 92.98 (mL/min/1.73m2); Potassium 4.1 mmol/L (3.5-5.1)
== END 2022-12-19 04:42 | disposition home or self-care (01) ==
LOC: LBO 04:41
PROVIDERS: PCP Family Medicine; Visit Provider Family Medicine
DX: I10 Essential (primary) hypertension (principal)
CPT/HCPCS: 36415; 82565; 84132

== ENCOUNTER → 2024-01-08 00:27 | Outpatient (CLI) | payer OTHER, SELFPAY ==
--- NOTE | 2024-01-08 07:45 | DI.MAMMO_ITS ---
Exam(s) MAMMO SCREENING EXAM: MAMMO SCREENING CLINICAL HISTORY: screening, Z12.39 TECHNIQUE: Bilateral full field digital CC and MLO mammographic images were obtained with 3D tomosyn thesis and utilizing computer aided detection (CAD). COMPARISON: Available for comparison. FINDINGS: Masses/Architectural Distortion: None seen. Microcalcifications: No suspicious pleomorphic-type are seen. Skin Thickening/Nipple Retraction: None. IMPRESSION: 1. No significant interval change with no specific features of malignancy noted. 2. Unless there is more urgent need, screening mammography is recommended, as per [employer] guidelines. BI-RADS Category 1 - Negative Breast Density - Category B - Scattered areas of fibroglandular density Breast density category C or D implies that the patient has dense breast tissue. Dense breast tissue is very common and is not abnormal but dense breast tissue can make it harder to find cancer on a ma mmogram. Also, dense breast tissue may increase their breast cancer risk. This information about the result of the mammogram report was provided to the patient to raise their awareness. Use this report when you speak with the patient about their risks for breast cancer, which includes their family hist ory. At that time, you may recommend for more screening tests (Ultrasound or MRI) as they might be us eful based on their risk. A negative radiographic report should not delay biopsy if a dominant or clinically suspicious mass is present. Up to ten percent of cancers are not identified on mammography. A negative report may reinforce clinical impression. Adenosis and dense breasts may obscure an underlying neoplasm. False positive reports average 6 to 10%. Patient will receive a letter notifying them of these results.
== END ==
PROVIDERS: PCP Family Medicine; Visit Provider Family Medicine
DX: Z12.31 Encounter for screening mammogram for malignant neoplasm of breast (principal)
CPT/HCPCS: 77063; 77067

== ENCOUNTER 2025-01-10 02:11 | Outpatient (CLI) | payer OTHER, SELFPAY ==
--- NOTE | 2025-01-10 06:30 | DI.MAMMO_ITS ---
Exam(s) MAMMO SCREENING EXAM: MAMMO SCREENING CLINICAL HISTORY: screening,z12.39 TECHNIQUE: Mammograms were interpreted according to the usual protocol including computer analysis with CAD system, tomosynthesis and C-view imaging. COMPARISON: 2015 through 2023 FINDINGS: The breasts are composed of scattered fibroglandular densities, Breast Density category B. No suspicious masses or suspicious microcalcifications are seen. No skin thickening or abnormal axillary lymph nodes are seen. There has been no significant change from prior exams. IMPRESSION: BI-RADS Category 1, Negative mammogram Yearly screening mammography is recommended. Breast Density - Category B - There are scattered areas of fibroglandular density. Breast density Category C or D implies that the patient has dense breast tissue. Dense breast tissue can make it harder to find cancer on a mammogram. Dense breast tissue is also associated with an increased risk of breast cancer. This information about the result of the mammogram report was provided to the patient to raise their awareness. Use this report when you speak with the patient about their risks for breast cancer, which includes their family history. At that time, you may recommend additional screening tests (Ultrasound or MRI) as these tests may add significant information. A negative radiographic report should not delay biopsy if a dominant or clinically suspicious mass is present. Up to ten percent of cancers are not identified on mammography. A negative report may reinforce clinical impression. Adenosis and dense breasts may obscure an underlying neoplasm. False positive reports average 6 to 10%. Patient will receive a letter notifying them of these results.
--- NOTE | 2025-01-10 06:30 | DI.RAD_ITS ---
Exam(s) XR KNEE LT 3V AP,LAT,AUDREY EXAM: XR KNEE LT 3V AP,LAT,AUDREY CLINICAL HISTORY: pain lt knee,m25.562,? bakers cyst. TECHNIQUE: 2D digital imaging was performed. Three views. COMPARISON: CR XR knee LT 3V AP,lat,audrey from 04/22/2018 FINDINGS: BONES: No acute fracture is present. No bony destructive lesion is seen. JOINTS: Severe narrowing of the medial femoral tibial joint space. Periarticular spurring throughout credit, greatest at the medial femoral tibial joint and patellofemoral joint. No joint effusion is seen. SOFT TISSUE: Normal. IMPRESSION: Advanced degenerative changes of the medial femoral tibial joint of the thumb DATA REPOSITORY: RADIATION DOSE DELIVERED:
--- NOTE | 2025-01-10 06:30 | DI.RAD_ITS ---
Exam(s) XR KNEE RT 3V AP,LAT,AUDREY EXAM: XR KNEE RT 3V AP,LAT,AUDREY CLINICAL HISTORY: rt knee pain,m25.561. TECHNIQUE: 2D digital imaging was performed. Three views. COMPARISON: CR XR KNEE RT 3V AP,LAT,AUDREY from 05/15/2021 CR XR KNEE LT 3V AP,LAT,AUDREY from 01/10/2025 FINDINGS: BONES: No acute fracture is present. No bony destructive lesion is seen. JOINTS: Moderate narrowing of the medial femoral tibial joint and mild periarticular spurring. Mild varus angulation. Mild spurring at the articular aspect of the patella. No joint effusion is seen. SOFT TISSUE: Normal. IMPRESSION: Moderate degenerative changes of the medial femoral tibial joint space. DATA REPOSITORY: RADIATION DOSE DELIVERED:
== END 2025-01-10 02:31 ==
LOC: DI 02:11
PROVIDERS: PCP Family Medicine; Visit Provider Family Medicine
DX: Z12.31 Encounter for screening mammogram for malignant neoplasm of breast (principal); M25.561 Pain in right knee; M25.562 Pain in left knee
CPT/HCPCS: 73562; 77063; 77067

== ENCOUNTER 2025-01-10 10:48 | Outpatient (CLI) | payer OTHER, SELFPAY ==
[2025-01-10 08:49] LABS: Anion Gap 8.4 mmol/L (3-11); BUN 24 mg/dL (7-18); CO2 27.6 mmol/L (21.0-32.0); CREATININE 0.7 mg/dL (0.55-1.02); Calcium 8.7 mg/dL (8.5-10.1); Chloride 109 mmol/L (98-107); Estimated GFR 91.83 (mL/min/1.73m2); Glucose 64 mg/dL (74-106); Potassium 3.7 mmol/L (3.5-5.1); Sodium 145 mmol/L (136-145)
== END 2025-01-10 10:49 | disposition home or self-care (01) ==
LOC: LBO 10:48
PROVIDERS: PCP Family Medicine; Visit Provider Family Medicine
DX: E87.1 Hypo-osmolality and hyponatremia (principal)
CPT/HCPCS: 36415; 80048